=== PATIENT | male | born 1980 | race Caucasian/White ===

== ENCOUNTER 2020-12-27 22:26 | Emergency (ER) | payer OTHER ==
[2020-12-28 00:45] LABS: HEMOGLOBIN 16.8 gm/dl (14.0-17.5); RED BLOOD COUNT 5.47 M/UL (4.20-5.50); WHITE BLOOD COUNT 7.1 K/UL (4.5-11.0)
[2020-12-28 01:08] LABS: BUN/CREATININE RATIO 20 (0-10)
[2020-12-28] MEDS ORDERED: ZOFRAN ODT 4 MG4 MG PO (02:47)
[2020-12-28] MEDS ORDERED: LODINE CAP 300300 MG PO (02:47)
[2020-12-28] MEDS ORDERED: BENTYL 20MG TAB20 MG PO (02:47)
== END 2020-12-28 03:01 | disposition home or self-care (01) ==
LOC: ER1 22:26
DX: K80.20 Calculus of gallbladder without cholecystitis without obstruction (principal); E11.9 Type 2 diabetes mellitus without complications; I10 Essential (primary) hypertension; E78.5 Hyperlipidemia, unspecified; Z87.891 Personal history of nicotine dependence; Z88.8 Allergy status to other drugs, medicaments and biological substances
CPT/HCPCS: 80053; 81001; 82550; 82553; 83690; 83874; 84484; 85025; 93005; 99284; Q9967